=== PATIENT | female | born 1975 | race Two or more races ===

== ENCOUNTER → 2016-11-04 | Outpatient (CLI) | payer MEDICARE ==
[~2016-11-04] MED LIST: ESSENTIA TABLE1 EACH PO; FLEXERIL10 MG PO; LAMOTRIGINE100 MG PO; OMEPRAZOLE40 M1 PO; VITAMIN B12 PO
--- NOTE | ~2016-11-04 | CR63 ---
[facility] A Service of [facility] / [facility] RADIOLOGY TEXT RESULTS PATIENT: GURVINDER GORDON LOCATION: [facility] : 75 UNIT #: [id number] AGE: [address]: Ignacio Gray MD SEX: F ORDER DR: [id number] [facility] [address] [place], [place] [address] [id number] O MR#: [id number] Acc #: [id number] NAME: GURVINDER GORDON : 1975 SEX: F STUDY DATE/TIME: 11/04/2016 10:11 UNIT: [facility] ROOM: STUDY DESCRIPTION: CR Chest 2 View Attending Physician: Ignacio Gray M.D. Referring Physician: Ignacio Gray M.D. Ordering Physician: Ignacio Gray M.D. Primary Care Physician: Perla Decker MEDICAL IMAGING REPORT This report is preliminary unless electronic signature is present EXAM Chest PA and lateral, 11/04/2016 HISTORY Status post left partial knee replacement, now with pain, preop exploration left knee open excision with patellar resurfacing. Short of breath today on exertion. FINDINGS PA and lateral examination of the chest upright shows a good expansion of the parenchyma with a normal distribution of the pulmonary vascularity. There is no indication of congestion, effusion, infiltrate, tumor, or nodular density. The pleural reflections and diaphragmatic contours are normal. The cardiac silhouette and mediastinal anatomy is within normal limits. IMPRESSION Normal chest. Dictated by... Jayesh Cano M.D. THIS IS AN ELECTRONICALLY VERIFIED REPORT Jayesh Cano M.D. at 11/05/2016 6:07 AM LUNA/efren TD: 11/05/2016 04:18 JOB #: [id number] MEDICAL IMAGING REPORT COPY
--- NOTE | ~2016-11-04 | EKG ---
PATIENT: GURVINDER GORDON UNIT #: [id number] Ventricular Rate: 96 BPM Atrial Rate: 96 BPM P-R Interval: 152 ms QRS Duration: 76 ms Q-T Interval: 372 ms QTC Calculation(Bezet): 469 ms P [place]: 63 degrees Calculated R [place]: 51 degrees Calculated T [place]: 43 degrees Diagnosis Line: Normal sinus rhythm Diagnosis Line: Normal ECG Diagnosis Line: No previous ECGs available Diagnosis Line: Confirmed by MIGUEL SOLORIO MD ([id number]) on Diagnosis Line: 11/05/2016 4:08:18 PM INTERPRETING MD: LYNDSEY MARQUEZ
--- NOTE | ~2016-11-04 | CO ---
Unit #: [id number] #: [id number] Patient: GURVINDER GORDON [id number] [address] [place], [place] [address] [id number] O MR#: [id number] NAME: GURVINDER GORDON ROOM: Age: 41 Sex: F Admission Date: 11/04/2016 : 1975 Attending Physician: Ignacio Gray M.D. Primary Care Physician: Perla Victor, Alex Consultation Date: 11/04/2016 CONSULTATION REPORT REASON FOR CONSULTATION Preoperative medical evaluation prior to left knee exploration, open excision with patella resurfacing and revision left total knee arthroplasty scheduled by Dr. Gray for 11/13/2016. HISTORY OF PRESENT ILLNESS The patient is a 41-year-old female, who presents to preprocedural screening for the reason as indicated above. She complains of left knee pain associated with previous left knee prosthesis. She is able to perform all activities of daily living including going up and down stairs. She states she has pain in the left knee when going up and downstairs, but denies shortness of breath and chest pain. She denies upper chest, upper back, arm, neck, jaw pain and pressure. Denies shortness of air, dyspnea on exertion, paroxysmal nocturnal dyspnea, or orthopnea. She has never been advised to have a sleep study. She has never had a cardiac catheterization procedure or stress test. She denies history of myocardial infarction, congestive heart failure, CVA, many stroke, diabetes mellitus, or kidney disease. She does report having menses since 09/2016 with varying amounts of bleeding heavy at times. She does not use control. She denies possibility of at this time. She has not been evaluated by correction lieutenant that she says it takes too long to get in to see even her primary care physician or FIELD OPERATIONS SUPERVISOR. She does not have menstrual cramping. She does feel fatigued at times. She denies lightheadedness, dizziness, palpitations, presyncope, or syncope. She has been evaluated by Dr. Gray and scheduled for the above-referenced elective procedure. PAST MEDICAL HISTORY Chronic back pain, asthma, depression/bipolar disorder, dysfunctional uterine bleeding since 09/2016 without medical evaluation. PAST SURGICAL HISTORY 1. Left total knee arthroplasty x2. 2. Left knee replacement (partial). 3. x2. 4. Ectopic in 2002. Please note, the patient states that she "felt everything during surgery for ectopic in 2002." Otherwise, there are no stated family or personal complications to anesthesia. ALLERGIES Penicillins and sulfa cause rash. She is also allergic to aluminum hydroxide, titanium, and nickel. Additional allergies include cobalt, magnesium, gold, and sodium. She denies latex allergy. Unit #: [id number] #: [id number] Patient: GURVINDER GORDON CURRENT MEDICATIONS Lamotrigine 100 mg p.o. in the morning, Flexeril 10 mg tab one p.o. daily, vitamin B12 1000 mcg p.o. daily, Essentia tablet one tab p.o. daily. SOCIAL HISTORY Denies tobacco use, EtOH use, or illicit drug use. FAMILY HISTORY Per review of Dr. Gray's office note and confirmation with the patient, father has history of diabetes, hypertension, and high cholesterol. REVIEW OF SYSTEMS Dysfunctional uterine bleeding since 09/2016 not associated with uterine cramping, fever, chills, or other associated symptoms. The bleeding is variable in nature sometimes less than others and sometimes heavy. A 10-point review of systems is conducted and negative, except as indicated under history of present illness above. PHYSICAL EXAMINATION GENERAL: A 41-year-old female, awake, alert, in no acute distress. VITAL SIGNS: Temperature 97.9, heart rate 96, respiratory rate 16, blood pressure 113/77, oxygen saturation 100% on room air. HEENT: Atraumatic and normocephalic. Sclerae anicteric. No discharge from eyes, ears, or nares. LYMPH: No preauricular, postauricular, tonsillar, submental, anterior, or posterior cervical adenopathy. ENDOCRINE: No thyromegaly, thyroid nodules, or tenderness. RESPIRATORY: Clear to auscultation in all figueroa bilaterally without wheezes, rhonchi, or rales. CARDIOVASCULAR: S1, S2. Regular rate and rhythm without murmur or rub. GI: Bowel sounds are positive x4. Soft, nontender, nondistended. EXTREMITIES: No edema, cyanosis, or clubbing. MUSCULOSKELETAL: Strength 5/5 in all extremities bilaterally to flexion and extension without obvious tenderness or atrophy. NEUROLOGIC: Alert and oriented x3. Speech clear. Follows commands. No facial droop. DIAGNOSTIC STUDIES LABORATORY RESULTS: WBC 3.6, hemoglobin 12.4, hematocrit 38.4, MCV 81.6, MCH 26.4, RDW 17.5. Sodium 138, potassium 3.8, chloride 104, CO2 30, glucose 76, BUN 11, creatinine 0.6, calcium 8.8. AST 32, ALT 35, alkaline phos 77, bilirubin total 0.4. Total protein 6.7, albumin 4.1. Urinalysis; leukocyte esterase trace, nitrite negative, blood 3+, rbc's 200 to 300, wbc 0 to 2, bacteria none, squamous cells none, urine culture and sensitivity not indicated. Blood type O positive, antibody screen negative. MRSA nasal screen pending at this time. IMAGING STUDIES: Two-view chest x-ray report pending at this time. CARDIOVASCULAR STUDIES: 12-lead EKG, normal sinus rhythm, normal ECG confirmed report pending at this time. IMPRESSION The patient is a 41-year-old female, who presents to preprocedural screening for, 1. Preoperative medical evaluation prior to left total knee exploration and possible revision. The patient's Hartman cardiac risk index is equal Unit #: [id number] #: [id number] Patient: GURVINDER GORDON to 0.4%. This represents the patient's perioperative risk of cardiac , fatal or nonfatal myocardial infarction, cardiopulmonary arrest, arrhythmias, and/or pulmonary edema. This has been detail with the patient. She wishes to proceed with surgery as scheduled at this time. 2. Dysfunctional uterine bleeding. I have ordered a urine beta-hCG off the sample in the lab today. The patient denies possibility of . The patient has been advised to call and schedule an appointment as soon as possible with correction lieutenant for further evaluation and management of this condition. I have spoken with Dr. Gray's office and recommended that the surgery be canceled pending resolution of this condition. I have discussed this with the patient in detail and she has been advised to call Dr. Gray's office when she gets an appointment with FIELD OPERATIONS SUPERVISOR to reschedule the surgery and she has verbalized understanding of this information. 3. Chronic back pain. 4. Asthma. 5. Depression/bipolar disorder. 6. Microcytic hematuria likely secondary to dysfunctional uterine bleeding. Thank you for allowing us to participate in the care of this patient. Once the patient is cleared by her correction lieutenant and her surgery is rescheduled by Dr. Gray, we will gladly follow her for postop medical management pending his order. Dictated by... Karen Polo A.P.R.N. for Laverne Baum/alva TD: 11/05/2016 03:00 JOB #: [id number] CONSULTATION REPORT X Karen Polo APRN X CONSULTATION REPORT
[2016-11-04 08:36] LABS: HEMATOCRIT 38.4 % (35.0-45.0); HEMOGLOBIN 12.4 gm/dL (12.0-16.0); MEAN CELL VOLUME 81.6 FL (83-96); MEAN CORPUSCULAR HEMOGLOBIN 26.4 PG (28-34); MEAN CORPUSCULAR HGB CONC 32.4 g/dL (30-36); MEAN PLATELET VOLUME 8.6 FL (6.5-11.5); RED BLOOD COUNT 4.7 X10e (3.90-5.30); RED CELL DISTRIBUTION WIDTH 17.5 % (11.0-15.5); WHITE BLOOD COUNT 3.6 X10e3 (4.0-10.5)
[2016-11-04 08:39] LABS: URINE APPEARANCE CLEAR; URINE BILIRUBIN NEG (NEG); URINE BLOOD 3+ (NEG); URINE COLOR YELLOW; URINE GLUCOSE NEG (NEG); URINE KETONE NEG (NEG); URINE LEUKOCYTE ESTERASE TRACE (NEG); URINE NITRATE NEG (NEG); URINE PH 6.5 (5-8); URINE PROTEIN NEG (NEG); URINE SPECIFIC GRAVITY 1.012 (1.003-1.035); URINE UROBILINOGEN 0.2 MG/DL (NEG)
[2016-11-04 08:42] LABS: URBCS1 AUWI 200-300 /[HPF] (0-2); URINE BACTERIA AUWI NEG (NEGATIVE); URINE SQUAMOUS EPITHELIAL CELL NONE SEEN /[HPF]; UWBCS1 AUWI 0-2 (0-5)
[2016-11-04 08:54] LABS: CULTURE INDICATED? NO
[2016-11-04 08:55] LABS: URINE SOURCE CLEAN CATCH
[2016-11-04 09:09] LABS: ALBUMIN SERUM 4.1 g/dL (3.5-5.0); ALKALINE PHOSPHATASE 77 U/L (32-92); ALT (SGPT) 35 U/L (10-40); AST (SGOT) 32 U/L (10-42); BILIRUBIN,TOTAL 0.4 mg/dL (0.2-2.0); BLOOD UREA NITROGEN 11 mg/dL (9-23); BUN/CREATININE RATIO 18.33; CALCIUM SERUM 8.8 mg/dL (8.4-10.2); CARBON DIOXIDE 30 mmol/L (22-31); CHLORIDE 104 mmol/L (100-111); CREATININE SERUM 0.6 mg/dL (0.6-1.4); GLOM FILT RATE Estimated ABOVE60 mL/min (>60); GLUCOSE FASTING 76 mg/dL (70-110); POTASSIUM 3.8 mmol/L (3.5-5.1); PROTEIN TOTAL SERUM 6.7 g/dL (6.0-8.3); SODIUM 138 mmol/L (135-145)
== END | disposition home or self-care (01) ==
LOC: CAMB 07:45
PROVIDERS: Orthopaedic Surgery
DX: Z01.818 Encounter for other preprocedural examination (principal); M25.562 Pain in left knee; Z96.652 Presence of left artificial knee joint
CPT/HCPCS: 36415; 71020; 80053; 81003; 84703; 85027; 85610; 86850; 86900; 86901; 87070; 93005